=== PATIENT | male | born 1990 | race Two or more races ===

== ENCOUNTER 2023-08-16 20:25 | Emergency (ER) | payer OTHER ==
[~2023-08-16] VITALS: Ht 175.3 cm; Wt 63.6 kg
[2023-08-17] MEDS: TraMADol HCL 50 MG TABLET PO ONE (01:04)
[2023-08-17] MEDS: LIDOCAINE 1% 10 ML VIAL SQ ONE (01:04)
[2023-08-17] MEDS: CLINDAMYCIN PHOS 150 MG/ML 4 ML VIAL IM ONE (01:05)
[2023-08-17] MEDS ORDERED: CLIN-142 PO (02:04)
[2023-08-17 02:39] VITALS: BP 134/74; PULSE 98; RESP 16; TEMP 98.3
== END 2023-08-17 03:05 | disposition home or self-care (01) ==
LOC: EMS 20:25
DX: L02.11 Cutaneous abscess of neck (principal); F12.90 Cannabis use, unspecified, uncomplicated
CPT/HCPCS: 99283; 10060; 96372; J3490 ×2